=== PATIENT | female | born 1995 | race Asian ===

== ENCOUNTER 2016-09-24 10:07 | Emergency (ER) | payer OTHER ==
[~2016-09-24] VITALS: Ht 142.2 cm; Wt 29.8 kg
[2016-09-24 10:27] VITALS: Ht 142.2 cm; Wt 29.8 kg
[2016-09-24] MEDS ORDERED: MULT-506 PO (11:31)
[2016-09-24] MEDS ORDERED: SODIUM CHLORIDE 0.9% 1000ML 1,000 ML IV STA (11:33)
[2016-09-24] MEDS ORDERED: ONDANSETRON INJ 2 MG/ML 2 ML VIAL IV STA (11:33)
[2016-09-24 12:06] LABS: BUN/CREATININE RATIO 9.1 (10-20); CALCIUM 10.4 mg/dl (8.5-10.1); CREATININE 0.84 mg/dl (0.60-1.20); POTASSIUM 2.6 mmol/L (3.5-5.1)
[2016-09-24 12:07] LABS: BASO % 0.7 %; BASO ABS # 0.06 K/uL (0-0.2); COMPLETE YES; EOS % 0.2 %; IG% 0.8 %; LYMPH % 33.2 %; LYMPH ABS # 2.84 K/uL (1.2-3.4); MEAN CELL VOLUME 88.9 fL (80-100); MEAN CORPUSCULAR HEMOGLOBIN 32.6 pg (25-34); MEAN CORPUSCULAR HGB CONC 36.7 g/dl (32-36); MEAN PLATELET VOLUME 8.5 fL (7.4-10.4); MONO % 7.5 %; NEUT % 57.6 %; PLATELET COUNT 304 K/uL (130-400); RED BLOOD COUNT 5.06 M/uL (4.2-5.4); WHITE BLOOD COUNT 8.56 K/uL (4.8-10.8)
[2016-09-24 12:23] LABS: URINE APPEARANCE TURBID (CLEAR); URINE BILIRUBIN NEG (NEG); URINE COLOR DK YELLOW; URINE NITRITE NEG (NEG); UROBILINOGEN NEG (NEG)
[2016-09-24 12:25] LABS: MANUAL MICROSCOPIC REQUIRED? YES; REVIEW REQ? NO
[2016-09-24 12:31] LABS: URINE RBC >30 /hpf (0-4)
[2016-09-24 12:33] LABS: URINE BACTERIA 2+ (NEG); URINE MUCUS PRESENT (NONE PRSENT)
[2016-09-24 12:34] LABS: ZZUR CULT IF INDIC CLEAN CATCH YES
[2016-09-24] MEDS ORDERED: POTASSIUM CHLORIDE 10 MEQ TABCR PO STA ×3 (12:46→17:21)
[2016-09-24] MEDS ORDERED: OPTIRAY 320 IV PRN (15:15)
--- NOTE | 2016-09-24 15:23 | DIAGNOSTIC IMAGING REPORT ---
CT ABD/PELVIS IV AND ORAL CONT CLINICAL HISTORY: Diffuse abdominal pain and vomiting. COMPARISON STUDY: None. TECHNIQUE: Following the IV administration of 94 mL of Optiray-320, CT scan of the abdomen and pelvis was performed from the lung bases to the proximal femurs. Images are reviewed in the axial, sagittal, and coronal planes. IV contrast was administered without complication. CT DOSE: 209.37 mGy.cm FINDINGS: Lower chest: The heart is normal in size and configuration, without pericardial effusion. The lung bases and pleural spaces are clear. Liver: There is a 15 mm peripheral mass within the right lobe. This demonstrates nodular enhancement and likely represents a hemangioma. Gallbladder: Unremarkable. Spleen: Normal in size and attenuation. Pancreas: Unremarkable. Adrenal glands: Unremarkable. Kidneys: There is symmetric renal cortical enhancement. The kidneys are normal in size without hydronephrosis. Bowel: There are no transition zones indicate bowel obstruction. The appendix is felt to be normal. There is hyperenhancement of the left colon extending to the level of the anus. The findings are consistent with inflammatory bowel disease or infectious colitis. Peritoneum: There is no intraperitoneal free air or abdominal ascites. Vasculature: The abdominal aorta is normal in course and caliber. Adenopathy: None. Pelvic viscera: The bladder, and pelvic viscera are unremarkable. Skeletal structures: No destructive osseous lesions are seen. IMPRESSION: 1. No evidence of bowel obstruction. No evidence of free air 2. Left colonic wall hyperenhancement consistent with ulcerative colitis or an infectious colitis 3. Normal appendix 4. 15 mm hepatic mass consistent with a hemangioma Electronically signed by: Ethan Harris M.D. 09/24/2016 3:22 PM Dictated Date/Time: 09/24/2016 3:15 PM
[2016-09-24 16:05] VITALS: BP 99/61; PULSE 80; O2SAT 99
[2016-09-24] MEDS ORDERED: MAGNESIUM SULFATE 1GM / D5W 1 GM BAG IV STA (16:37)
--- NOTE | 2016-09-24 18:11 | EMERGENCY ROOM VISIT NOTE ---
History Report prepared by Miki: Lino Baxter Under the Supervision of: Griffin SalmeronO. First contact with patient: 11:14 Chief Complaint: VOMITING Stated Complaint: VOMITING Nursing Triage Summary: Abdominal pain, vomiting with diarrhea. Pt states she has been vomiting for over a month. Pt denies hx of anorexia or bulimia. Unable to get temp in triage. History of Present Illness The patient is a 20 year old female who presents to the Emergency Room with complaints of persistent episodes of vomiting and diarrhea that started a month ago. She says that she has episodes of vomiting and diarrhea daily. The patient has around 5 episodes of diarrhea daily, and 2 or 3 episodes of vomiting daily. The patient has also been having abdominal pain, and it makes it hard for her to sleep. She typically vomits at night, and nothing makes her symptoms better or worse. She says she feels uncomfortable after she eats, and once or twice a day, she tries to make herself vomit. She eats around twice a day. Today, she started having painful urination. The patient has lost 10 kg over the 3 months. The patient says she is not trying to make herself vomit in order to lose weight. She denies a cough or runny nose. Her last period was years ago. Source of History: patient Onset: A month ago Position: other (global - vomiting/diarrhea) Symptom Intensity: 5 episodes of diarrhea daily, 2/3 episodes of vomiting daily Timing: other (persistent episodes) Associated Symptoms: + abdominal pain, No cough Note: Associated symptoms: Lost 10 kg in past 3 months. Denies runny nose. Review of Systems See HPI for pertinent positives & negatives. A total of 10 systems reviewed and were otherwise negative. Past Medical & Surgical Medical Problems: (1) Stomach problems Family History No pertinent family history Social History Smoking Status: Current Every Day Smoker Alcohol Use: none Marital Status: single Housing Status: lives alone Occupation Status: [employer] student Current/Historical Medications Scheduled Multivitamin (Multivitamin), 1 TAB PO DAILY Allergies Coded Allergies: No Known Allergies (Unverified , 09/24/16) Physical Exam Vital Signs Date Time Temp Pulse Resp B/P Pulse Ox O2 Delivery O2 Flow Rate FiO2 09/24/16 16:05 80 18 99/61 99 09/24/16 14:08 81 16 100/76 09/24/16 12:59 76 16 100/72 100 Room Air 09/24/16 10:27 112 16 106/77 96 Room Air Physical Exam GENERAL: sitting up in bed, cachectic, chronically ill-appearing, no acute distress EYE EXAM: normal conjunctiva OROPHARYNX: no exudate, no erythema, lips, buccal mucosa, and tongue normal and mucous membranes are moist NECK: supple, no nuchal rigidity, no adenopathy, non-tender LUNGS: Clear to auscultation. Normal chest wall mechanics HEART: no murmurs, S1 normal and S2 normal ABDOMEN: abdomen soft, non-tender, normo-active bowel sounds, no masses, no rebound or guarding. BACK: Back is symmetrical on inspection and there is no deformity, no midline tenderness, no CVA tenderness. SKIN: no rashes and no bruising UPPER EXTREMITIES: upper extremities are grossly normal. LOWER EXTREMITIES: No pitting edema. NEURO EXAM: Normal sensorium, cranial nerves II-XII grossly intact, normal speech, no gross weakness of arms, no gross weakness of legs. Medical Decision & Procedures ER Provider Diagnostic Interpretation: CT:Per my review, radiologist interpretation. CT ABD/PELVIS IV AND ORAL CONT CLINICAL HISTORY: Diffuse abdominal pain and vomiting. COMPARISON STUDY: None. TECHNIQUE: Following the IV administration of 94 mL of Optiray-320, CT scan of the abdomen and pelvis was performed from the lung bases to the proximal femurs. Images are reviewed in the axial, sagittal, and coronal planes. IV contrast was administered without complication. CT DOSE: 209.37 mGy.cm FINDINGS: Lower chest: The heart is normal in size and configuration, without pericardial effusion. The lung bases and pleural spaces are clear. Liver: There is a 15 mm peripheral mass within the right lobe. This demonstrates nodular enhancement and likely represents a hemangioma. Gallbladder: Unremarkable. Spleen: Normal in size and attenuation. Pancreas: Unremarkable. Adrenal glands: Unremarkable. Kidneys: There is symmetric renal cortical enhancement. The kidneys are normal in size without hydronephrosis. Bowel: There are no transition zones indicate bowel obstruction. The appendix is felt to be normal. There is hyperenhancement of the left colon extending to the level of the anus. The findings are consistent with inflammatory bowel disease or infectious colitis. Peritoneum: There is no intraperitoneal free air or abdominal ascites. Vasculature: The abdominal aorta is normal in course and caliber. Adenopathy: None. Pelvic viscera: The bladder, and pelvic viscera are unremarkable. Skeletal structures: No destructive osseous lesions are seen. IMPRESSION: 1. No evidence of bowel obstruction. No evidence of free air 2. Left colonic wall hyperenhancement consistent with ulcerative colitis or an infectious colitis 3. Normal appendix 4. 15 mm hepatic mass consistent with a hemangioma Electronically signed by: Ethan Harris M.D. 09/24/2016 3:22 PM Dictated Date/Time: 09/24/2016 3:15 PM Laboratory Results 09/24/16 11:55 Red Blood Count 5.06, Mean Corpuscular Volume 88.9, Mean Corpuscular Hemoglobin 32.6, Mean Corpuscular Hemoglobin Concent 36.7, Mean Platelet Volume 8.5, Neutrophils (%) (Auto) 57.6, Lymphocytes (%) (Auto) 33.2, Monocytes (%) (Auto) 7.5, Eosinophils (%) (Auto) 0.2, Basophils (%) (Auto) 0.7, Neutrophils # (Auto) 4.93, Lymphocytes # (Auto) 2.84, Monocytes # (Auto) 0.64, Eosinophils # (Auto) 0.02, Basophils # (Auto) 0.06 09/24/16 11:30 Test 09/24/16 11:16 09/24/16 11:30 09/24/16 11:50 09/24/16 11:55 Urine Test NEG (NEG) Anion Gap 10.0 mmol/L (3-11) Est Creatinine Clear Calc Drug Dose 49.8 ml/min Estimated GFR () 115.1 Estimated GFR (Non- 99.4 BUN/Creatinine Ratio 9.1 (10-20) Calcium Level 10.4 mg/dl (8.5-10.1) Total Bilirubin 0.8 mg/dl (0.2-1) Direct Bilirubin 0.1 mg/dl (0-0.2) Aspartate Amino Transf (AST/SGOT) 21 U/L (15-37) Alanine Aminotransferase (ALT/SGPT) 29 U/L (12-78) Alkaline Phosphatase 50 U/L (45-117) Total Protein 7.6 gm/dl (6.4-8.2) Albumin 4.1 gm/dl (3.4-5.0) Lipase 158 U/L (73-393) Urine Color DK YELLOW Urine Appearance TURBID (CLEAR) Urine pH 7.0 (4.5-7.5) Urine Specific [place] 1.020 (1.000-1.030) Urine Protein 2+ (NEG) Urine Glucose (UA) NEG (NEG) Urine Ketones TRACE (NEG) Urine Occult Blood 3+ (NEG) Urine Nitrite NEG (NEG) Urine Bilirubin NEG (NEG) Urine Urobilinogen NEG (NEG) Urine Leukocyte Esterase MODERATE (NEG) Urine RBC >30 /hpf (0-4) Urine WBC 10-30 /hpf (0-5) Urine Epithelial Cells >30 /lpf (0-5) Urine Uric Acid Crystals PRESENT (NONE PRSENT) Urine Bacteria 2+ (NEG) Urine Hyaline Casts 10-30 /lpf (0-5) Urine Granular Casts 1-5 /lpf (0) Urine Mucus PRESENT (NONE PRSENT) White Blood Count 8.56 K/uL (4.8-10.8) Red Blood Count 5.06 M/uL (4.2-5.4) Hemoglobin 16.5 g/dL (12.0-16.0) Hematocrit 45.0 % (37-47) Mean Corpuscular Volume 88.9 fL (80-100) Mean Corpuscular Hemoglobin 32.6 pg (25-34) Mean Corpuscular Hemoglobin Concent 36.7 g/dl (32-36) Platelet Count 304 K/uL (130-400) Mean Platelet Volume 8.5 fL (7.4-10.4) Neutrophils (%) (Auto) 57.6 % Lymphocytes (%) (Auto) 33.2 % Monocytes (%) (Auto) 7.5 % Eosinophils (%) (Auto) 0.2 % Basophils (%) (Auto) 0.7 % Neutrophils # (Auto) 4.93 K/uL (1.4-6.5) Lymphocytes # (Auto) 2.84 K/uL (1.2-3.4) Monocytes # (Auto) 0.64 K/uL (0.11-0.59) Eosinophils # (Auto) 0.02 K/uL (0-0.5) Basophils # (Auto) 0.06 K/uL (0-0.2) RDW Standard Deviation 38.7 fL (36.4-46.3) RDW Coefficient of Variation 12.2 % (11.5-14.5) Immature Granulocyte % (Auto) 0.8 % Immature Granulocyte # (Auto) 0.07 K/uL (0.00-0.02) Laboratory results per my review. Medications Administered Medications (Trade) Dose Ordered Sig/Nathan Route Start Time Stop Time Status Last Admin Dose Admin Sodium Chloride (Nss 1000ml) 1,000 ml @ 999 mls/hr Q1H1M STAT IV 09/24/16 11:33 09/24/16 12:33 DC 09/24/16 12:00 999 MLS/HR Ondansetron HCl (Zofran Inj) 4 mg NOW STAT IV 09/24/16 11:33 09/24/16 11:34 DC 09/24/16 12:00 4 MG Potassium Chloride (Klor-Con M10) 40 meq NOW STAT PO 09/24/16 12:46 09/24/16 12:47 DC 09/24/16 13:02 40 MEQ Potassium Chloride (Klor-Con M10) 40 meq NOW STAT PO 09/24/16 16:27 09/24/16 16:28 DC 09/24/16 17:21 40 MEQ Magnesium Sulfate (Magnesium Sulfate) 1 gm NOW STAT IV 09/24/16 16:37 09/24/16 16:38 DC 09/24/16 17:22 1 GM ECG Indication: vomiting Rate (beats per minute): 74 Rhythm: normal sinus Findings: no ectopy, other (normal axis) ED Course ED COURSE: Vital signs were reviewed and showed tachycardic vitals. The patients medical record was reviewed The above diagnostic studies were performed and reviewed. ED treatments and interventions as stated above. 1122: The patient was evaluated in room B6. A complete history and physical examination was performed. 1133: Ordered Zofran Inj 4 mg IV, NSS 1000 ml @ 999 mls/hr IV. 1621: I discussed the patient with Dr. Urban [facility] gastroenterology. 1624: I reevaluated and updated the patient. 1627: Ordered Klor-Con M10 40 meq PO. 1637: Ordered Magnesium Sulfate 1 gm IV. 1653: Upon reevaluation, the patient is refusing to stay. She understands the risks and benefits. She was able to explain back to me in her own words why she was not staying. She has an appointment with Dr. Duggan tomorrow at 0910. I discussed my findings with the patient and she understands and agrees with the treatment plan. Based on the patients age, coexisting illnesses, exam and lab findings the decision to treat as an outpatient was made. The patient remained stable while under my care. The patient appeared well at the time of discharge. Medical Decision Differential diagnoses includes but is not limited to gastritis, peptic ulcer disease, GERD, gallbladder disease, pancreatitis, small bowel obstruction, acute coronary syndrome, pericarditis, ischemic bowel, irritable bowel disease, irritable bowel syndrome, appendicitis, diverticulitis, malignancy, hernia, urinary tract infection, torsion, [/ectopic (if female)], perforation, trauma, infectious. Patient is a 20-year-old female who presents the ER with vomiting and diarrhea which has been present for the past month. She denies any recent antibiotics. On exam she is chronically ill-appearing and cachectic. Labs are remarkable for a potassium of 2.6. This was repleted with 12 mEq of potassium and IV magnesium. Discussed the case with GI following a CT showing enhancement of the left:. They recommended and were agreeable with admission but patient declined. Patient will follow-up tomorrow as an appointment was set up. Patient eventually admitted to her exam that she does make herself vomit because her stomach feels a little upset. She has been doing this about every other day. I do favor this is all secondary to eating disorder. Her EKG was unremarkable. I did stress the importance of watching and admission. I explained the risk and benefits. She was able to recite back to me my concerns and she was able to express and she did not want to stay in the hospital but will follow-up tomorrow. Discussed with Pt concerning signs and symptoms to watch out for. Pt was instructed to follow up with their PCP and discussed with the patient their option to return to the ED at anytime for persistent or worsening symptoms. The appropriate anticipatory guidance and out-patient management, including indications for return to the emergency department, were explained at length to the patient and understood. Consults Time Called: 1615 Consulting Physician: Dr. Urban [facility] gastroenterology Returned Call: 1621 I discussed the patient with Dr. Urban [facility] gastroenterology. Impression Primary Impression: Failure to thrive Additional Impressions: Hypokalemia Eating disorder Vomiting and diarrhea Scribe Attestation The scribe's documentation has been prepared under my direction and personally reviewed by me in its entirety. I confirm that the note above accurately reflects all work, treatment, procedures, and medical decision making performed by me. Departure Information Dispostion Home / Self-Care Referrals Urban, Percy Moses D.O. Forms HOME CARE DOCUMENTATION FORM, IMPORTANT VISIT INFORMATION Patient Instructions Eating Disorder Tx, Hypokalemia Dc, My [facility], Vomiting - [facility] Additional Instructions Please follow up with your primary care doctor or if you are a student [facility] with in the next 24 hours. Any worsening of your symptoms, please return to the ED immediately. This includes abdominal pain, persistent nausea vomiting, bloody vomit, bloody stools, passing out, or any other concerning signs or symptoms from your standpoint. Please follow-up with GI tomorrow at 910 as set up and previously discussed. Please take the potassium pills when you get home. Problem Qualifiers Primary Impression: Failure to thrive Failure to thrive age range: in adult Qualified Codes: R62.7 - Adult failure to thrive
== END 2016-09-24 19:13 | disposition home or self-care (01) ==
LOC: C.EDB 10:10
DX: R62.7 Adult failure to thrive (principal); E87.6 Hypokalemia; F50.9 Eating disorder, unspecified; R19.7 Diarrhea, unspecified; F17.200 Nicotine dependence, unspecified, uncomplicated